=== PATIENT | female | born 1995 | race Hispanic/Latino ===

== ENCOUNTER 2018-01-10 21:09 | Emergency (ER) | payer SELFPAY ==
[2018-01-10] MEDS ORDERED: Adacel (T-DAP) 0.5 ML VIAL ONE (22:08)
[2018-01-10] MEDS ORDERED: Lidocaine 1% (PF) 30 ML VIAL ONE (23:05)
== END 2018-01-10 23:35 | disposition home or self-care (01) ==
LOC: ERS 21:09
DX: T74.11XA Adult physical abuse, confirmed, initial encounter (principal); S01.01XA Laceration without foreign body of scalp, initial encounter; S60.512A Abrasion of left hand, initial encounter; S60.511A Abrasion of right hand, initial encounter; S40.812A Abrasion of left upper arm, initial encounter; S40.811A Abrasion of right upper arm, initial encounter; Z23 Encounter for immunization; Y04.8XXA Assault by other bodily force, initial encounter; Y07.9 Unspecified perpetrator of maltreatment and neglect
CPT/HCPCS: 12002; 90471; 90715; J2001